=== PATIENT | female | born 1945 | race Caucasian/White ===

== ENCOUNTER 2016-04-25 21:01 | Inpatient (IN) | payer MEDICARE, BC ==
--- NOTE | ~2016-04-25 | DS ---
Discharge Summary [address] [place]. [address] NAME: ANNA GARCIA : 47 STATUS : DIS IN PAT#: [id number] AGE: 70 ADM/REG DATE : 04/25/16 MR#: [id number] REPORT SERV DATE: 05/07/16 DICTATED BY: EVA ORTEGA DATE: 05/07/16 REPORT STATUS : Draft TRANSCRIBED BY: MODJeb DATE: 05/07/16 Data Collection from hospitalization DISCHARGE DIAGNOSES: 1. Dislocated left hip. 2. Hypertension. 3. Sleep apnea. 4. Hypercholesterolemia. 5. Cataracts. CONSULTATIONS: Andressa Mcfadden NP. PROCEDURE PERFORMED: Open revision and reduction of left total hip arthroplasty, 04/26/2016. PATHOLOGY: Tissue and hardware of left hip-see gross description. DISCHARGE MEDICATIONS: Lotrel one capsule every morning, Eliquis 2.5 mg twice a day, Saphris 20 mg sublingually at bedtime, vitamin D 1000 units daily, Corgard 40 mg every morning, fish oil 1000 mg every morning, Ditropan 5 mg twice a day, Percocet 5/325 one tablet every 4 hours as needed. CONDITION ON DISCHARGE: Stable. DISPOSITION: The patient was discharged home on a regular diet with activities as instructed. She will follow up with me two weeks following discharge and at [facility], 04/29/2016. HOSPITAL COURSE: This is a 70-year-old female who had multiple dislocations, status post revision total hip arthroplasty x2. She presented to the [facility] with recurrent dislocation of the left hip. She stated that she was attempting to log roll out of her recliner in an attempt to tie her shoe and felt a pop and pain. She had experienced this multiple times before. She presented to the most convenient emergency room and that emergency room physician attempted relocation but was unsuccessful under conscious sedation. We were therefore noticed and she was transferred down town to us. She was admitted at this time for further evaluation and treatment. Upon admission, her radiographs had revealed a dislocation of the left hip. She was seen by Andressa Mcfadden regarding surgery/preop consultation. The patient denied all symptoms other than left hip pain including chest pain, palpitations, dyspnea, wheezing, headaches, vision disturbances, tinnitus, hallucinations, abdominal pain, nausea, vomiting, diarrhea, and edema. Blood pressure was currently stable. Her current home medications were continued. She was going to continue her current home medications with regard to her dysrhythmia. The patient reports this is tachycardia and is stable. She does not follow with a shoe parts molder. She does have sleep apnea and she was stable on her home CPAP. Aggressive pulmonary toilet postoperatively would be provided as needed. 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 Her current home medications were continued and we would monitor her labs. She does have bipolar disorder which is chronic. Her home medications were continued. The following day, she was taken to the operating room where she underwent the above-mentioned procedure. She Discharge Summary [address] [place]. [address] NAME: ANNA GARCIA : 46 STATUS : DIS IN PAT#: [id number] AGE: 70 ADM/REG DATE : 04/25/16 MR#: [id number] REPORT SERV DATE: 05/07/16 DICTATED BY: EVA ROTEGA DATE: 05/07/16 REPORT STATUS : Draft TRANSCRIBED BY: TOR DATE: 05/07/16 tolerated this well. There were no complications. Postoperatively, she was evaluated by Occupational and Physical Therapy. IV fluids were continued. Lisinopril was held. Her blood pressure was low. She was currently in a normal sinus rhythm. On postop day #2, she had no new complaints. She denies pain. TEDs/SCDs were in place. Corgard was on hold for systolic blood pressure less than 100. Oxybutynin was continued. Saphris was continued at bedtime. Discharge planning was performed. On 04/28/2016, she continued to do well. She wanted to go home. Discharge instructions were given. Due to her improved and stable condition, she was discharged home with the above-stated instructions. Information collected by: Aleja Elizabeth I submit the above information as my discharge summary. SAI/TOR Eva Ortega M.D. / [id number] CC: Aki Allison D.O.
--- NOTE | ~2016-04-25 | HP ---
History And Physical [id number] [place]. [address] NAME: ANNA GARCIA : 47 STATUS : ADM IN [facility]#: [id number] AGE: 70 ADM/REG DATE : 04/25/16 MR#: [id number] REPORT SERV DATE: 04/26/16 DICTATED BY: EVA ORTEGA DATE: 04/26/16 REPORT STATUS : Draft TRANSCRIBED BY: MODL DATE: 04/26/16 DATE OF ADMISSION: 04/25/2016 CHIEF COMPLAINT: Left hip pain. HISTORY OF PRESENT ILLNESS: This is a pleasant 70-year-old female, who has had multiple dislocations, status post revision total hip arthroplasty x2, who presented to the [facility] with a recurrent dislocation of her left hip. She stated that she was attempting to log roll out of her recliner in an attempt to tie her shoe and felt a pop and pain. Having experienced this multiple times before, she presented to the most convenient emergency room and that ER physician attempted relocation, but was unsuccessful under conscious sedation and we were therefore notified and she was transferred down to us. PAST MEDICAL HISTORY: Significant for bipolar disease, hypertension, sleep apnea, hypercholesterolemia, cataracts. PAST SURGICAL HISTORY: As above, as well as intraocular lens implant, tubal ligation, nasal endoscopy. SOCIAL HISTORY: No alcohol, tobacco, or other illicits. She is and has very supportive and children and they are present. FAMILY HISTORY: Significant for longevity. ALLERGIES: NO KNOWN DRUG ALLERGIES. HOME MEDICATIONS: Include Lotrel, Saphris, aspirin, vitamin D, Corgard, fish oil, Ditropan. REVIEW OF SYSTEMS: On my exam on the morning of 04/26/2016 in the preoperative holding area, she had no headache, chest pain, nausea, vomiting, shortness of breath, diarrhea, fevers, chills, or other constitutional symptoms per a full 14-point systematic review. PHYSICAL EXAMINATION: GENERAL: I see a lady who generally is in no apparent distress. AAO x3. Pleasant and cooperative with exam. EXTREMITIES: Bilateral upper extremities and the right lower extremity show full active and passive range of motion. Good distal pulses. No peripheral edema. Good sensation. The left lower extremity is shortened and internally rotated, and she has tenderness to palpation around the left hip. There are no skin breaks. Good distal pulses. No peripheral edema. Good sensation. She is able to flex and extend her toes with 5/5 strength. All dermatomes of bilateral lower extremities are equal. CHEST: Clear to auscultation bilaterally. HEAD, EAR, NOSE, AND THROAT: Pupils equally round and reactive to light and accommodation. Extraocular muscles intact. ABDOMEN: Soft, nontender, nondistended. Bowel sounds are present. History And Physical [address] [address] NAME: ANNA GARCIA : 47 STATUS : ADM IN PAT#: [id number] AGE: 70 ADM/REG DATE : 04/25/16 MR#: [id number] REPORT SERV DATE: 04/26/16 DICTATED BY: EVA ORTEGA DATE: 04/26/16 REPORT STATUS : Draft TRANSCRIBED BY: TOR DATE: 04/26/16 RADIOGRAPHS: Reveal a dislocation of her left hip. ASSESSMENT: A 70-year-old with dislocated left hip arthroplasty. PLAN: I have given them the risks and benefits of closed reduction versus open reduction, evaluation and revision of left total hip arthroplasty. The risks and benefits of both are discussed at length. They verbalized understanding and wished to undergo revision total hip arthroplasty. RADHA/TOR Eva Ortega M.D. / [id number] CC: Eva Ortega M.D.
--- NOTE | ~2016-04-25 | CN ---
Consultation Report [facility] [address] [place]. [address] NAME: ANNA GARCIA : 47 STATUS : ADM IN PAT#: [id number] AGE: 70 ADM/REG DATE : 04/25/16 MR#: [id number] REPORT SERV DATE: 04/26/16 DICTATED BY: ANDRESSA MCFADDEN DATE: 04/26/16 REPORT STATUS : Draft TRANSCRIBED BY: MODL DATE: 04/26/16 DATE OF CONSULTATION: 04/25/2016 REASON FOR CONSULTATION: Surgery/preop consultation per Dr. Thomas. HISTORY OF PRESENT ILLNESS: This is a pleasant, alert and oriented 70-year-old female who was admitted to Dr. Thomas today from [facility] after experiencing a left hip dislocation while bending over to tie her shoe earlier today at home. She has an extensive orthopedic history including a left total hip arthroplasty with multiple revisions and is reporting severe pain to her left hip after unsuccessful reduction attempts in the ER at the outside facility. This problem is being addressed by the primary team, and we have been asked to provide surgery evaluation at this time. Other than the left hip pain as above, the patient denies all symptoms including chest pain, palpitations, dyspnea, wheezing, headaches, vision disturbances, tinnitus, hallucinations, abdominal pain, nausea, vomiting, diarrhea, and edema. PAST MEDICAL HISTORY: Significant for: 1. Hypertension. 2. Sleep apnea, uses a CPAP at bedtime at home. 3. High cholesterol that is controlled by diet only. 4. Bladder weakness. 5. Bipolar disorder. 6. Osteoarthritis. 7. Degenerative disk disease in knees and hips. 8. Bilateral cataracts. 9. Dysrhythmia, "fast heart rate" per patient report. PAST SURGICAL HISTORY: Significant for: 1. Left total hip arthroplasty with multiple revisions. 2. Left femur fracture. 3. Left knee arthroscopy. 4. Right TKA. 5. Bilateral cataract surgery. 6. Intraocular lens implant. 7. Right foot hammertoe surgery, 2008. 8. Tubal ligation. 9. Right nasal endoscopy. The patient follows with Dr. Tda Wolf as her PCP. She follows with Dr. Thomas for orthopedic and she also follows with Dr. Mejia, splicer helper. 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 She is independent of all ADLs. She is a former smoker having quit smoking cigarettes 30 years ago. She denies alcohol and illicit drug use. Consultation Report [address] [place]. [address] NAME: ANNA GARCIA : 47 STATUS : ADM IN PAT#: [id number] AGE: 70 ADM/REG DATE : 04/25/16 MR#: [id number] REPORT SERV DATE: 04/26/16 DICTATED BY: ANDRESSA MCFADDEN DATE: 04/26/16 REPORT STATUS : Draft TRANSCRIBED BY: TOR DATE: 04/26/16 FAMILY HISTORY: Mother at age 97 and had a history of hypertension. Father at age 87 and had a history of hypertension and "ministrokes." ALLERGIES: NO KNOWN ALLERGIES. HOME MEDICATIONS: Include: 1. Lotrel 10/40 one p.o. q.a.m. 2. Saphris 20 mg sublingual at bedtime. 3. Aspirin 81 mg p.o. q.a.m. 4. Vitamin D 1000 units p.o. daily. 5. Corgard 40 mg p.o. q.a.m. 6. Fish oil 1000 mg p.o. q.a.m. 7. Ditropan 5 mg p.o. twice daily. REVIEW OF SYSTEMS: A complete 10-point review of systems was negative except as per HPI. PHYSICAL EXAMINATION: VITAL SIGNS: T 98.2, P 68, R 17, BP 149/65, and SpO2 of 94% on 4 L nasal cannula. GENERAL: A well-appearing, obese, female in no acute distress. NEUROLOGIC: Awake, alert, and oriented x3 without focal deficits. HEENT: Normocephalic and atraumatic without lymphadenopathy. NECK: Supple. No JVD. LUNGS: CTA in all lung mitchell with normal respiratory effort, diminished in bilateral bases. CV: Regular rate and rhythm. S1, S2 auscultated without murmur, rub, gallop, or click. ABDOMEN: Soft, round, and nontender. Bowel sounds active in all quadrants. No masses. EXTREMITIES: Generalized edema in bilateral lower extremities. No cyanosis. Cap refill within normal limits. PSYCHIATRIC: Normal affect. SKIN: Clean, dry, and intact with mucous membranes pink and moist. LABORATORY DATA: Pertinent Labs: Hemoglobin and hematocrit 16.3 and 49.4 at this time. No other labs are available; they are pending at the time of dictation. IMAGING DATA: Pertinent Imaging: X-ray from outside facility confirmed left hip dislocation. Orthopedic imaging is managed by primary team. Previous chest x-ray was clear as reviewed by Dr. Urrutia, supervising physician. ASSESSMENT AND PLAN: 1. Hypertension. This is chronic and is currently stable. We will continue her current home medications and monitor her labs while she is here. 2. Dysrhythmia. The patient reports this is tachycardia, stable, and she does not follow with senior information systems architect. We will continue her current home medications, monitor her labs. We will also plan to get a 12-lead EKG in the morning as well as a chest x-ray in the Consultation Report [address] [place]. [address] NAME: ANNA GARCIA : 47 STATUS : ADM IN PAT#: [id number] AGE: 70 ADM/REG DATE : 04/25/16 MR#: [id number] REPORT SERV DATE: 04/26/16 DICTATED BY: ANDRESSA MCFADDEN DATE: 04/26/16 REPORT STATUS : Draft TRANSCRIBED BY: MODJeb DATE: 04/26/16 morning to compare to her previous chest x-ray to ensure no changes prior to potential surgery. 3. Sleep apnea. She is stable on home CPAP. Primary team has already consulted Respiratory Therapy. We will ensure that Respiratory Therapy is notified of this order and monitor her respiratory status while she is in here following aggressive pulmonary toilet postop if needed. 4. Bladder weakness. This is also chronic. We will continue her current home medications and monitor labs while she is in house. 5. Bipolar disorder. Again, this is chronic. We will certainly continue her home medications and monitor labs while she is in here. 6. Left hip dislocation. This is acute with a history of chronic left hip orthopedic problems, and we will defer to the primary team for management of this condition. Thank you for this consult. We are pleased to follow this patient with you. This consult was completed through thorough review of [employer], old records, [employer], and current chart and through thorough interview with the patient. LAUREN/TOR Andressa Mcfadden NP / [id number] CC: Danny Thomas M.D.
--- NOTE | ~2016-04-25 | OP ---
Record Of Operation [facility] [address] [place]. [address] NAME: ANNA GARCIA : 47 STATUS : ADM IN PAT#: [id number] AGE: 70 ADM/REG DATE : 04/25/16 MR#: [id number] REPORT SERV DATE: 04/26/16 DICTATED BY: EVA ORTEGA DATE: 04/26/16 REPORT STATUS : Draft TRANSCRIBED BY: MODL DATE: 04/26/16 DATE OF PROCEDURE: 04/26/2016 PREOPERATIVE DIAGNOSIS: Dislocated left hip. POSTOPERATIVE DIAGNOSIS: Dislocated left hip. PROCEDURE: An open revision and reduction of left total hip arthroplasty. EXPLANTS: I explanted a Nichols and Nephew 40, +8 cobalt chrome head ball with its sleeve. IMPLANTS: I implanted a 40, +15.5 cobalt chrome DePuy head ball. COMPLICATIONS: None. SPECIMENS: None. COUNTS RECORDED CORRECT: Yes. ANESTHESIA: General. BLOOD LOSS: Less than 50 mL. FINDINGS: Reducible hip, well-fixed femoral and acetabular components, and poly liner in good position and shape. INDICATIONS FOR PROCEDURE: Briefly, this is a pleasant 70-year-old female, who suffers from bipolar disease, obesity and forgetfulness, who underwent a recurrent dislocation for the third time on this revision total hip arthroplasty. She originally had undergone a standard total hip arthroplasty, but secondary to recurrent dislocations as she continues to violate her hip precautions in an attempt to tie her shoes and/or get out of the recliner, she was originally revised to the constrained liner for this R3 hip system. When that failed through dislocation, she was again revised to a 40, +8, the longest head ball in that system with a 20-degree lipped liner. She has now dislocated this hip for the third time on this second revision. I gave the family the risks and benefits of surgery including, but not limited to , myocardial infarction, pulmonary embolism, stroke, deep venous thrombosis, damage to nerves, damage to vessels, damage to other soft tissues, painful scar, unsightly scar, hardware wear, hardware breakage, periprosthetic fracture, periprosthetic infection and possible need for further surgery that could include further arthroplasty, arthrodesis, and amputation. I discussed leg length inequality and future dislocation. Among all of our surgical options, I had discussed with them simple closed reduction under conscious sedation. However, I did not believe that we are going to be able to keep this lady from violating her hip precautions secondary to her history and while she is certainly a very pleasant and kind woman, she does lose track of her body position and space and does not realize that she is putting herself in a dangerous position. I therefore have discussed with them full revision total hip arthroplasty to a more constrained liner. Options would Record Of Operation [address] [place]. [address] NAME: ANNA GARCIA : 47 STATUS : ADM IN PAT#: [id number] AGE: 70 ADM/REG DATE : 04/25/16 MR#: [id number] REPORT SERV DATE: 04/26/16 DICTATED BY: EVA ORTEGA DATE: 04/26/16 REPORT STATUS : Draft TRANSCRIBED BY: TOR DATE: 04/26/16 be for acetabular revision, femoral revision, and/or both. Both of these would require significant blood loss, possible bone loss and I have concerns based on her x-ray that her cup is already medialized and that in the removal process, there may be acetabular defect that I am then counting on fixation of screw and bony ingrowth on a constrained liner with less than adequate bone stalk. I have also discussed with them the off-label use of the 01/29 DePuy femoral head ball on the Nichols and Nephew 12/14 taper. I have discussed with them the relative risks and benefits of using this off-label implant secondary to gain of extra length as the DePuy head ball comes up to a +15.5, whereas the Nichols and Nephew head ball only comes to a +8. Gaining this extra 6 mm of leg length/offset would significantly tighten this hip and hopefully provide a more long-term solution to this. It would also allow for ease of future dislocation reduction as I have concerns that should the constrained liner fail, she would be pulling her entire acetabular component out of her pelvis. I have discussed this all with the family and they verbalize understanding and agree to the use of a DePuy femoral head ball on a Nichols and nephew femoral stem. They understand that this too may fail, but agreed that the morbidity of the head ball exchange would be significantly less than full acetabular and femoral revision and that should this fail, that would become an option later. PROCEDURE IN DETAIL: After the patient was identified in the perioperative holding area and correct side and site identified and marked by me, she was taken to the operative suite, where she was placed under general anesthesia supine, then turned to the right lateral decubitus position with the left hip up. Her old skin incision was marked after she had been prepped and draped in sterile fashion, correct time-out and the antibiotics had been administered. I then utilized her old posterolateral incision and carried sharply down through the soft tissues. Bovie cautery was utilized to gain hemostasis. The level of fascia davie was encountered and incised in line with the incision. This gave good visualization of the posterolateral aspect of the hip joint as her short external rotator repair had long since ruptured through her prior dislocations. There was no sign of infection. There was a small hematoma, less than 30 mL, that was evacuated from the hip joint itself. I then utilized a bone tamp to disimpact the femoral head and sleeve, this was done without incident. There was no damage noted to the Dixon taper on the femoral stem. The femoral stem was well positioned and well fixed within the bone. I then evaluated the acetabular component, noting that her polyethylene was in good position and free of damage. I then trialed the DePuy 15.5, 40 mm head ball and noted that it was very difficult to reduce secondary to the length and offset, but that she did have full range of motion coming to full extension and external rotation without impingement. She was able to flex to 90 degrees, adduct to 15 degrees, and internally rotate to 90 degrees without dislocation of this hip. I therefore dislocated the trial head ball, cleaned the Dixon taper and impacted a 15.5 cobalt chrome head ball, this was done without incident. I then provided manual traction, where I attempted to remove the head ball off the stem, and the head ball was noted to be well fixed and well seated onto the femoral head ball. I then relocated the hip and again went through a series of motions. She came to full extension and external rotation without impingement and she again was able to flex to 90 degrees, adduct to 15 degrees, and internally rotate to 90 degrees without dislocating this hip. I therefore copiously irrigated, closed the fascia davie with a #2 Quill in a running and oversewn fashion, followed by 2-0 Vicryl on the skin, followed by Monocryl and Dermabond. She was transferred to the recovery room in stable condition with good distal pulses, having Record Of Operation [id number] [facility] [place]. [address] NAME: ANNA GARCIA : 47 STATUS : ADM IN PAT#: [id number] AGE: 70 ADM/REG DATE : 04/25/16 MR#: [id number] REPORT SERV DATE: 04/26/16 DICTATED BY: EVA ORTEGA DATE: 04/26/16 REPORT STATUS : Draft TRANSCRIBED BY: MODJeb DATE: 04/26/16 tolerated the procedure well. RADHA/TOR Eva Ortega M.D. / [id number] CC: Eva Ortega M.D.
[~2016-04-25 21:01] MED LIST: AMBIEN CR12.5 MG PO; ASA5GR PO; ASAB PO; BIAXIN5 PO; CALTRA600D PO; COR40 PO; CRESTOR20 MG PO; CRESTOR40 MG PO; DITRO5 PO; DITROXL5 PO; DSS PO; FESO4 PO; FISH OIL; FISH OIL PO; FISH-EPA1000 MG PO; INHALER; L20 PO; LOTREL1 CA2 PO; LOTREL1 CA5 PO; LOVENOX40 SC; LOVENOX40 SQ; M-CLEAR WC PO; MOBIC15 MG PO; MULTIVITAMI1 PO; NABUMETONE 750 MG PO; NORCO1 TA2 PO; OXYCON10 PO; PCET PO; PEP20 PO; PERCOCET1 TA2 PO; PRAVACHOL40 MG PO; PREV30 PO; PROTONIX PO; PT UNSURE OF MEDS; SAPHRIS10 MG SL; SINGULAIR1 PO; THERA-M PO; VITAMIN B12 PO; VITAMIN C PO; [UNRECOGNIZED DRUG - REMARK]
[2016-04-25] MEDS ORDERED: VITAMIN D1000 UNI1 PO (22:29)
[2016-04-25] MEDS ORDERED: COR40 PO (22:29)
[2016-04-25] MEDS ORDERED: ASAB PO (22:29)
[2016-04-25] MEDS ORDERED: DITRO5 PO (22:29)
[2016-04-25] MEDS ORDERED: LOTREL1 CA5 PO (22:29)
[2016-04-25] MEDS ORDERED: FISH-EPA1000 MG PO (22:29)
[2016-04-25] MEDS ORDERED: SAPHRIS10 MG SL (22:30)
[2016-04-25 22:35] LABS: BASOPHILS 0.1 %; BASOPHILS ABSOLUTE 0.01 10/3/uL (0.0-0.16); EOSINOPHILS 0 %; HEMATOCRIT 49.4 % (36.0-48.0); HEMOGLOBIN 16.3 g/dL (12.0-16.0); IMMATURE GRANULOCYTES 0.3 %; IMMATURE GRANULOCYTES ABSOLUTE 0.03 10/3/uL (0.0-0.11); LYMPHOCYTES 16.7 %; LYMPHOCYTES ABSOLUTE 1.86 10/3/uL (0.67-4.30); MEAN PLATELET VOLUME 8.8 fL (9.2-13.0); MONOCYTES 9.7 %; MONOCYTES ABSOLUTE 1.08 10/3/uL (0.21-1.20); NEUTROPHILS 73.2 %; NEUTROPHILS ABSOLUTE 8.15 10/3/uL (2.02-8.40); PLATELET COUNT 236 10/3/uL (150-400); RBC DISTRIBUTION WIDTH 13.7 % (12.0-16.0); RED CELL COUNT 5.61 10/6/uL (4.0-5.6); WHITE BLOOD CELLS 11.1 10/3/uL (4.5-10.5)
[2016-04-25 22:36] LABS: MANUAL DIFF NO %; MEAN CORPUSCULAR HEMOGLOB 29.1 pg (26.0-34.0); MEAN CORPUSCULAR VOLUME 88.1 fL (80-100)
[2016-04-25 22:40] LABS: PROTIME (NOT ORD) 13.3 SEC (12.0-14.5)
[2016-04-25 22:48] LABS: BUN (BLOOD UREA NITROGEN) 7 MG/DL (6-23); CALCIUM, SERUM 8.7 MG/DL (8.5-10.4); CHLORIDE, SERUM 99 MMOL/L (96-112); CO2 (CARBON DIOXIDE) 33 MMOL/L (24-34); CREATININE 0.57 MG/DL (0.55-1.02); GFR AFRICAN AMERICAN 110 ML/MIN (>=60); GFR NON AFRICAN AMERICAN 95 ML/MIN (>=60); POTASSIUM, SERUM 4.6 MMOL/L (3.5-5.3); SODIUM, SERUM 137 MMOL/L (135-148)
[2016-04-25 22:49] LABS: GLUCOSE, SERUM 166 MG/DL (60-99)
[2016-04-26 14:05] LABS: BUN (BLOOD UREA NITROGEN) 6 MG/DL (6-23); CALCIUM, SERUM 7.9 MG/DL (8.5-10.4); CHLORIDE, SERUM 98 MMOL/L (96-112); CO2 (CARBON DIOXIDE) 32 MMOL/L (24-34); CREATININE 0.42 MG/DL (0.55-1.02); GFR AFRICAN AMERICAN 121 ML/MIN (>=60); GFR NON AFRICAN AMERICAN 105 ML/MIN (>=60); GLUCOSE, SERUM 133 MG/DL (60-99); POTASSIUM, SERUM 4.2 MMOL/L (3.5-5.3); SODIUM, SERUM 138 MMOL/L (135-148)
[2016-04-27 05:22] LABS: BASOPHILS 0 %; EOSINOPHILS 0 %; IMMATURE GRANULOCYTES 0.1 %; IMMATURE GRANULOCYTES ABSOLUTE 0.01 10/3/uL (0.0-0.11); LYMPHOCYTES 16.5 %; LYMPHOCYTES ABSOLUTE 1.52 10/3/uL (0.67-4.30); MEAN CORPUS HGB CONC 31.9 g/dL (32.0-36.0); MEAN CORPUSCULAR HEMOGLOB 28.4 pg (26.0-34.0); MEAN CORPUSCULAR VOLUME 88.9 fL (80-100); MEAN PLATELET VOLUME 9.2 fL (9.2-13.0); MONOCYTES 12.9 %; MONOCYTES ABSOLUTE 1.19 10/3/uL (0.21-1.20); NEUTROPHILS 70.5 %; NEUTROPHILS ABSOLUTE 6.52 10/3/uL (2.02-8.40); PLATELET COUNT 224 10/3/uL (150-400); RBC DISTRIBUTION WIDTH 13.8 % (12.0-16.0); RED CELL COUNT 4.51 10/6/uL (4.0-5.6); WHITE BLOOD CELLS 9.2 10/3/uL (4.5-10.5)
[2016-04-27 05:23] LABS: HEMATOCRIT 40.1 % (36.0-48.0); HEMOGLOBIN 12.8 g/dL (12.0-16.0); MANUAL DIFF NO %
[2016-04-27 05:26] LABS: BUN (BLOOD UREA NITROGEN) 5 MG/DL (6-23); CALCIUM, SERUM 8.2 MG/DL (8.5-10.4); CHLORIDE, SERUM 100 MMOL/L (96-112); CO2 (CARBON DIOXIDE) 34 MMOL/L (24-34); CREATININE 0.43 MG/DL (0.55-1.02); GFR AFRICAN AMERICAN 120 ML/MIN (>=60); GFR NON AFRICAN AMERICAN 104 ML/MIN (>=60); GLUCOSE, SERUM 117 MG/DL (60-99); POTASSIUM, SERUM 4.4 MMOL/L (3.5-5.3); SODIUM, SERUM 139 MMOL/L (135-148)
[2016-04-28 04:46] LABS: BASOPHILS 0.1 %; BASOPHILS ABSOLUTE 0.01 10/3/uL (0.0-0.16); EOSINOPHILS 0 %; HEMATOCRIT 38.9 % (36.0-48.0); HEMOGLOBIN 12.5 g/dL (12.0-16.0); IMMATURE GRANULOCYTES 0.1 %; IMMATURE GRANULOCYTES ABSOLUTE 0.01 10/3/uL (0.0-0.11); LYMPHOCYTES ABSOLUTE 1.86 10/3/uL (0.67-4.30); MEAN CORPUS HGB CONC 32.1 g/dL (32.0-36.0); MEAN CORPUSCULAR HEMOGLOB 28.4 pg (26.0-34.0); MEAN CORPUSCULAR VOLUME 88.4 fL (80-100); MEAN PLATELET VOLUME 8.9 fL (9.2-13.0); MONOCYTES 16.2 %; MONOCYTES ABSOLUTE 1.26 10/3/uL (0.21-1.20); NEUTROPHILS 59.6 %; NEUTROPHILS ABSOLUTE 4.62 10/3/uL (2.02-8.40); PLATELET COUNT 231 10/3/uL (150-400); WHITE BLOOD CELLS 7.8 10/3/uL (4.5-10.5)
[2016-04-28 04:52] LABS: MANUAL DIFF NO %
[2016-04-28 05:00] LABS: BUN (BLOOD UREA NITROGEN) 7 MG/DL (6-23); CALCIUM, SERUM 8.6 MG/DL (8.5-10.4); CHLORIDE, SERUM 99 MMOL/L (96-112); CO2 (CARBON DIOXIDE) 35 MMOL/L (24-34); CREATININE 0.44 MG/DL (0.55-1.02); GFR AFRICAN AMERICAN 119 ML/MIN (>=60); GFR NON AFRICAN AMERICAN 103 ML/MIN (>=60); GLUCOSE, SERUM 107 MG/DL (60-99); POTASSIUM, SERUM 4.4 MMOL/L (3.5-5.3); SODIUM, SERUM 138 MMOL/L (135-148)
[2016-04-28] MEDS ORDERED: ELIQUIS 2.5 MG2.5 MG PO (17:38)
[2016-04-28] MEDS ORDERED: PCET PO (17:38)
[2016-10-26] MEDS ORDERED: ASAB PO (17:18)
[2016-10-26] MEDS ORDERED: CALTRAT600 PO (17:21)
[2016-10-31] MEDS ORDERED: ZANTAC150 MG PO (15:09)
[2016-10-31] MEDS ORDERED: ALBUTEROL0.083 % INH (15:10)
== END 2016-04-28 18:16 | disposition home or self-care (01) | DRG 468 ==
LOC: 3SO 21:01
PROVIDERS: Hospitalist; Orthopaedic Surgery
PROC: 0QS704Z Reposition Left Upper Femur with Internal Fixation Device, Open Approach (ICD-10-PCS; principal; 2016-04-25)
PROC: 0SRS01Z Replacement of Left Hip Joint, Femoral Surface with Metal Synthetic Substitute, Open Approach (ICD-10-PCS; 2016-04-25)
PROC: 0SPS0JZ Removal of Synthetic Substitute from Left Hip Joint, Femoral Surface, Open Approach (ICD-10-PCS; 2016-04-25)
DX: T84.021A Dislocation of internal left hip prosthesis, initial encounter (principal); I10 Essential (primary) hypertension; G47.33 Obstructive sleep apnea (adult) (pediatric); F31.9 Bipolar disorder, unspecified
CPT/HCPCS: 36415; 72170; 73502-LT; 80048; 82962; 83735; 85025; 85610; 86850; 86900; 86901; 87641; 88300; 93005; 97110-GP; 97116-GP; 97162-GP; 97166-GO; 97530-GP; A9270-GY; C1776; J0690; J2250; J2370; J2405; J2710; J3010; J3370